=== PATIENT | female | born 1995 | race African-American/Black ===

== ENCOUNTER 2017-07-04 23:18 | Emergency (ER) | payer SELFPAY ==
[2017-07-04] MEDS ORDERED: Metoclopramide HCl 10 MG/2 ML VIAL ONE (23:58)
[2017-07-04] MEDS ORDERED: diphenhydrAMINE 50 MG/ML VIAL ONE (23:58)
[2017-07-05 01:27] LABS: Specific Gravity 1.029 (1.002-1.036)
[2017-07-05 01:33] LABS: Pregnancy Test - Urine (BHCG) Negative (Negative); Pregu Control Background? CLEAR/WHITE (CLR/WHITE); Pregu Control Bar Appear? YES (CONTROL BAR)
== END 2017-07-05 01:13 | disposition home or self-care (01) ==
LOC: ERS 23:18
DX: I10 Essential (primary) hypertension (principal); R51 Headache
CPT/HCPCS: 81025; 96365; 96375; J1200; J2765

== ENCOUNTER 2019-12-09 13:51 | Outpatient (CLI) | payer BC ==
--- NOTE | 2019-12-09 14:23 | RAD ---
2 VIEWS CHEST: Date: 12/09/2019 COMPARISON: None. HISTORY: Shortness of breath. Pleural effusion. Pericardial effusion. FINDINGS: No pneumothorax, pleural fluid, lobar consolidation, or alveolar edema. Heart and mediastinal contour s are grossly unremarkable. IMPRESSION: No acute findings. POS: AH
== END 2019-12-09 13:52 | disposition home or self-care (01) ==
LOC: BICRAD 13:51
PROVIDERS: ATTEND Internal Medicine Cardiovascular Disease
DX: J90 Pleural effusion, not elsewhere classified (principal); R06.02 Shortness of breath
CPT/HCPCS: 71046

== ENCOUNTER 2023-02-04 17:35 | Emergency (ER) | payer BC ==
[2023-02-04] MEDS ORDERED: Acetaminophen 500 MG TAB ONE (18:34)
[2023-02-04 20:23] LABS: SARS-CoV-2 NAA Rapid Test Not Detected (NotDetected)
== END 2023-02-04 20:37 | disposition home or self-care (01) ==
LOC: ERS 17:35
DX: B34.9 Viral infection, unspecified (principal); I10 Essential (primary) hypertension; F17.290 Nicotine dependence, other tobacco product, uncomplicated
CPT/HCPCS: 99283